=== PATIENT | male | born 1930 | race Caucasian/White ===

== ENCOUNTER 2017-01-20 08:56 | Emergency (ER) | payer MEDICARE ==
[2017-01-20 09:23] LABS: Bilirubin Negative (Negative); Blood, Urine Moderate (Negative); Clarity Clear (Clear); Glucose, Urine (Dipstick) Negative (Negative); Leukocyte Negative (Negative); Nitrite Negative (Negative); Protein, Urine (Dipstick) 30 mg/dL (Neg-Trace); pH, Urine 5.5 (5.0-9.0)
[2017-01-20 09:31] LABS: Bacteria/HPF None Seen HPF (None Seen); Crystals/HPF None Seen HPF (Negative); Hyaline Casts/LPF NONE SEEN LPF (0-3 Hyaline); Other Casts/LPF None Seen LPF (0-3 Hyaline); Oval Fat Bodies/HPF None Seen HPF (None Seen); RBC/HPF 0-3 HPF (0-3); Renal Epithelial None Seen HPF (0-3); Sperm/HPF None Seen HPF (None Seen); Squamous Epithelial None Seen HPF (0-3); Transitional Epithelial NONE SEEN HPF (0-3); Trichomonas/HPF None Seen HPF (None Seen); WBC/HPF None Seen HPF (0-3); Yeast-All Forms None Seen HPF (None Seen)
--- NOTE | 2017-01-20 11:41 | CT ---
CT ABDOMEN AND PELVIS NONCONTRAST: Date: 01/20/17 HISTORY: Hematuria. Left flank pain. COMPARISON: 03/15/15. FINDINGS: Each renal collecting system and ureter are decompressed without stone apparent. Urinary bladder is incompletely distended. The gallbladder is now surgically absent. Lack of contrast limits evaluation for other abnormalities . There is calcification throughout the arterial structures. IMPRESSION: 1. No CT evidence of urinary tract obstruction or calcification. 2. Atherosclerosis. POS: TUNG
== END 2017-01-20 10:35 | disposition home or self-care (01) ==
LOC: BURERS 08:56
DX: M54.16 Radiculopathy, lumbar region (principal); I10 Essential (primary) hypertension
CPT/HCPCS: 74176; 81003; 81015

== ENCOUNTER 2017-02-02 10:30 | Emergency (ER) | payer MEDICARE ==
[2017-02-02] MEDS ORDERED: diphenhydrAMINE 25 MG CAP ONE (10:42)
== END 2017-02-02 11:30 | disposition home or self-care (01) ==
LOC: BURERS 10:30
DX: T63.441A Toxic effect of venom of bees, accidental (unintentional), initial encounter (principal); I10 Essential (primary) hypertension; Z79.899 Other long term (current) drug therapy
CPT/HCPCS: 99282

== ENCOUNTER 2017-02-05 12:09 | Emergency (ER) | payer MEDICARE ==
[2017-02-05 13:09] LABS: INR-International Normal Ratio 1.1; PTT 30.3 SEC (22.9-36.1); Prothrombin Time 14.4 SEC (12.0-14.7)
[2017-02-05 13:19] LABS: ALT (SGPT) 19 U/L (8-55); AST (SGOT) 17 U/L (5-34); Albumin 3.8 g/dL (3.4-4.8); Alkaline Phosphatase 53 U/L (40-150); Anion Gap 19 mmol/L (10-20); BUN (Urea Nitrogen) 31 mg/dL (8.4-25.7); Bilirubin, Total 2.5 mg/dL (0.2-1.2); CK (CPK) 126 U/L (30-200); Calc. Creatinine Clearance 0 mL/min (70-130); Carbon Dioxide 21 mmol/L (23-31); Chloride 103 mmol/L (98-107); Estimated GFR-MDRD 37; Globulin 3.2 g/dL (2.4-3.5); Glucose 149 mg/dL (83-110); Lipase 20 U/L (8-78); Potassium 3.8 mmol/L (3.5-5.1); Sodium 139 mmol/L (136-145)
[2017-02-05 13:20] LABS: Troponin I 0.217 ng/mL (< 0.028)
[2017-02-05 13:36] LABS: #Basophils 0.1 thou/uL (0.0-0.2); #Lymphocytes 1.3 thou/uL (1.20-3.40); #Neutrophils 5.7 thou/uL (1.40-6.50); %Basophils 0.7 % (0.0-1.0); %Eosinophils 0.4 % (0.0-10.0); %Lymphocytes 16.1 % (21.0-51.0); %Monocytes 12.2 % (0.0-10.0); %Neutrophils 70.6 % (42.0-75.0); Hemoglobin 14.6 g/dL (14.0-18.0); MDiff Complete? YES; Macrocytosis SLIGHT = 6-15 cells (100X) (0-5/hpf); Mean Corpuscular HGB CONC 34.3 g/dL (32.0-36.0); Mean Corpuscular Hemoglobin 34.6 pg (27.0-31.0); Mean Platelet Volume 7.7 fL (7.4-10.4); PLT Morphology Comment Appears Decreased; Platelet Count 128 thou/uL (130-400); RBC Distribution Width 10.7 % (11.5-14.5); Red Blood Cell (RBC) Count 4.22 mill/uL (4.70-6.10); White Blood Cell (WBC) Count 8.1 thou/uL (4.8-10.8)
[2017-02-05] MEDS ORDERED: Ondansetron HCl/PF 4 MG/2 ML Vial ONE (14:00)
[2017-02-05] MEDS ORDERED: Nitroglycerin 2% Ointment 1 INCH/1 GM Packet ONE (14:01)
--- NOTE | 2017-02-05 19:47 | RAD ---
PORTABLE CHEST 02/05/17 Comparison is made with the prior study dated 03/15/15. The heart is normal in size and the lungs are clear. No infiltrate or effusion was seen. There is no vascular congestive or edema. The mediastinum appears normal. IMPRESSION: No acute thoracic finding. POS: HOME
== END 2017-02-05 16:30 | disposition short-term general hospital (02) ==
LOC: BURERS 12:09
DX: I21.4 Non-ST elevation (NSTEMI) myocardial infarction (principal); Z85.828 Personal history of other malignant neoplasm of skin; I10 Essential (primary) hypertension
CPT/HCPCS: 71010; 80053; 82553; 83690; 84484; 85025; 85610; 85730; 93005; 96361; 96374; J2405

== ENCOUNTER 2017-02-22 12:40 | Emergency (ER) | payer MEDICARE ==
[2017-02-22] MEDS ORDERED: Magnesium Citrate 300 ML BOT ONE (13:31)
--- NOTE | 2017-02-22 16:09 | RAD ---
ABDOMEN 1 VIEW: DATE: 02/22/17. FINDINGS: The abdominal gas pattern was nonspecific with gas seen in nondilated large and small bowel. There i s no sign of obstruction. Pelvic calcifications are most likely phleboliths. Vascular calcification s are evident elsewhere. Clips are noted in the right upper quadrant from a prior procedure. Modera tely severe degenerative changes are seen in the lumbar spine. IMPRESSION: No acute abdominal finding. POS: HOME
== END 2017-02-22 13:39 | disposition home or self-care (01) ==
LOC: BURERS 12:40
DX: K59.00 Constipation, unspecified (principal); I10 Essential (primary) hypertension
CPT/HCPCS: 74000

== ENCOUNTER 2017-07-22 08:58 | Emergency (ER) | payer MEDICARE ==
[2017-07-22] MEDS ORDERED: Iopamidol 370 76% 100 ML VIAL ONE (09:00)
[2017-07-22 09:50] LABS: #Lymphocytes 1.2 thou/uL (1.20-3.40); #Monocytes 0.6 thou/uL (0.11-0.59); #Neutrophils 4.1 thou/uL (1.40-6.50); %Basophils 0.6 % (0.0-1.0); %Eosinophils 0.3 % (0.0-10.0); %Lymphocytes 19.6 % (21.0-51.0); %Monocytes 10.1 % (0.0-10.0); %Neutrophils 69.4 % (42.0-75.0); Hemoglobin 16.4 g/dL (14.0-18.0); Mean Corpuscular HGB CONC 36.2 g/dL (32.0-36.0); Mean Corpuscular Hemoglobin 33.4 pg (27.0-31.0); Mean Corpuscular Volume 92.4 fl (80.0-94.0); Platelet Count 145 thou/uL (130-400); RBC Distribution Width 11.7 % (11.5-14.5); Red Blood Cell (RBC) Count 4.91 mill/uL (4.70-6.10); White Blood Cell (WBC) Count 5.9 thou/uL (4.8-10.8)
[2017-07-22 09:55] LABS: INR-International Normal Ratio 1.1; PTT 31.3 SEC (22.9-36.1)
[2017-07-22 09:56] LABS: D-Dimer Test 0.48 *mcg/mL (0.27-0.43)
[2017-07-22 10:04] LABS: ALT (SGPT) 15 U/L (8-55); AST (SGOT) 19 U/L (5-34); Albumin 4.4 g/dL (3.4-4.8); Alkaline Phosphatase 68 U/L (40-150); Anion Gap 16 mmol/L (10-20); BUN (Urea Nitrogen) 20 mg/dL (8.4-25.7); Bilirubin, Total 2.4 mg/dL (0.2-1.2); Calc. Creatinine Clearance 0 mL/min (70-130); Calcium 9.2 mg/dL (7.8-10.44); Carbon Dioxide 23 mmol/L (23-31); Chloride 106 mmol/L (98-107); Estimated GFR-MDRD 59; Globulin 3.2 g/dL (2.4-3.5); Glucose 132 mg/dL (83-110); Protein, Total 7.6 g/dL (5.8-8.1); Sodium 141 mmol/L (136-145)
[2017-07-22 10:06] LABS: CKMB 3.9 ng/mL (0-6.6); Troponin I 0.053 ng/mL (< 0.028)
[2017-07-22 10:26] LABS: Bilirubin Negative (Negative); Blood, Urine Moderate (Negative); Clarity Slightly Cloudy (Clear); Glucose, Urine (Dipstick) Negative (Negative); Leukocyte Negative (Negative); Nitrite Negative (Negative); Protein, Urine (Dipstick) 100 mg/dL (Neg-Trace); Specific Gravity, Urine 1.025 (1.005-1.030); pH, Urine 5.5 (5.0-9.0)
[2017-07-22] MEDS ORDERED: Nitroglycerin 2% Ointment 1 INCH/1 GM Packet ONE (10:30)
[2017-07-22 10:34] LABS: RBC/HPF 0-3 HPF (0-3); Squamous Epithelial 0-3 HPF (0-3)
[2017-07-22 10:35] LABS: Bacteria/HPF 1+ HPF (None Seen); Hyaline Casts/LPF 0-3 HYALINE CAST LPF (0-3 Hyaline); WBC/HPF 0-3 HPF (0-3)
--- NOTE | 2017-07-22 20:30 | RAD ---
CHEST TWO VIEWS: 07/22/2017 COMPARISON: 02/05/2017 FINDINGS: Today's exam shows a normal sized heart and clear lungs. Calcification is seen in the aorta. There is no infiltrate, effusion, or vascular congestion. A small subcentimeter rounded structure in the r ight lower chest is probably a nipple shadow, and I believe a see a faint one on the left as well. Calcification of the anterior longitudinal ligament of the spine is noted. IMPRESSION: No acute thoracic findings. POS: HOME
--- NOTE | 2017-07-22 20:44 | CT ---
CT ANGIO CHEST: 07/22/2017 TECHNIQUE: A spiral CT of the chest was performed after a bolus of IV contrast for evaluation of shortness of br eath and an elevated D-dimer. Axial slices were acquired initially. Oblique coronal and sagittal im ages were reconstructed. FINDINGS: There is moderately good opacification of the pulmonary arterial system. No filling defect are seen, to suggest emboli. There is no sign of aortic dissection or aneurysm. No significant mediastinal a denopathy is seen. No masses are detected. There does appear to be some calcification in the perry ry arteries. The lungs are clear. No infiltrate, mass, or effusion is seen. Extensive degenerative changes are seen in the spine. Slices through a portion of the upper abdomen were unremarkable. IMPRESSION: No evidence of pulmonary embolism or other findings to explain shortness of breath. POS: HOME
== END 2017-07-22 12:00 | disposition short-term general hospital (02) ==
LOC: BURERS 08:58
DX: R55 Syncope and collapse (principal); R79.89 Other specified abnormal findings of blood chemistry; I10 Essential (primary) hypertension; Z87.891 Personal history of nicotine dependence; Z79.899 Other long term (current) drug therapy
CPT/HCPCS: 36415; 71046; 71275; 80053; 81003; 81015; 82553; 83605; 83880; 84484; 85025; 85379; 85610; 85730; 87040; 93005; 94760; A4216

== ENCOUNTER 2018-03-27 13:51 | Outpatient (CLI) | payer MEDICARE ==
--- NOTE | 2018-03-27 15:51 | RAD ---
LEFT HAND THREE VIEWS: 03/27/18 There is some mild narrowing of some of the MCP joints, especially the third. There is question of so me cystic changes or erosions in the second and third metacarpal heads. If erosions, then the possibi lity of gout would be raised. If cystic changes, then not. There are degenerative changes in many of the IP joints of the fingers. Most involved are the DIP joint of the index finger and IP joint of the thumb. The carpal bones showed no acute changes. IMPRESSION: Degenerative changes as noted. See comments above regarding MCP joints. POS: HOME
== END 2018-03-27 13:52 | disposition home or self-care (01) ==
LOC: BURRAD 13:51
PROVIDERS: ATTEND Family Medicine
DX: M79.642 Pain in left hand (principal); M19.042 Primary osteoarthritis, left hand

== ENCOUNTER 2018-07-28 10:58 | Emergency (ER) | payer MEDICARE ==
[2018-07-28 11:58] LABS: #Lymphocytes 1.2 thou/uL (1.20-3.40); #Monocytes 0.6 thou/uL (0.11-0.59); #Neutrophils 2.7 thou/uL (1.40-6.50); %Basophils 0.9 % (0.0-1.0); %Eosinophils 0.7 % (0.0-10.0); %Lymphocytes 27.2 % (21.0-51.0); %Monocytes 12.7 % (0.0-10.0); %Neutrophils 58.4 % (42.0-75.0); Mean Corpuscular HGB CONC 33.4 g/dL (32.0-36.0); Mean Corpuscular Hemoglobin 32.5 pg (27.0-31.0); Mean Corpuscular Volume 97.3 fL (78.0-98.0); Mean Platelet Volume 7.7 fL (7.4-10.4); Platelet Count 128 thou/uL (130-400); RBC Distribution Width 11.2 % (11.5-14.5); Red Blood Cell (RBC) Count 4.62 mill/uL (4.70-6.10); White Blood Cell (WBC) Count 4.5 thou/uL (4.8-10.8)
[2018-07-28 12:14] LABS: ALT (SGPT) 16 U/L (8-55); AST (SGOT) 21 U/L (5-34); Albumin 4.3 g/dL (3.4-4.8); Alkaline Phosphatase 69 U/L (40-150); Anion Gap 13 mmol/L (10-20); BUN (Urea Nitrogen) 19 mg/dL (8.4-25.7); Bilirubin, Total 2.6 mg/dL (0.2-1.2); Calc. Creatinine Clearance 0 mL/min (70-130); Carbon Dioxide 22 mmol/L (23-31); Chloride 109 mmol/L (98-107); Estimated GFR-MDRD 66; Globulin 3.1 g/dL (2.4-3.5); Glucose 110 mg/dL (83-110); Potassium 3.6 mmol/L (3.5-5.1); Protein, Total 7.4 g/dL (5.8-8.1); Sodium 140 mmol/L (136-145)
--- NOTE | 2018-07-28 19:07 | CT ---
CT BRAIN WITHOUT CONTRAST: 07/28/2018 FINDINGS: A noncontrast CT shows no intracranial bleeding or extraaxial hematoma. Diffuse atrophy is present w ith mild compensatory dilatation of the ventricles. 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 Alternatively, it could be a prominent Virchow space, but I favor a prior lacunar infarct. There is no sign of acute stroke or edema. A 4 cm CSF density structure is seen in the midline of the posterior fossa and slightly to the left. It is obviously longstanding and is most likely an arachnoid cyst. The bony structures all appear intact. There are no air-fluid levels in the sphenoid sinus. The mas toid air cells are clear, except for opacification of a few at the right mastoid tip. IMPRESSION: 1. No acute intracranial findings. 2. Atrophy and ischemic changes, as noted. 3. A 4 cm arachnoid cyst of the posterior fossa, obviously longstanding. POS: HOME
--- NOTE | 2018-07-28 19:08 | RAD ---
RIGHT HAND THREE VIEWS: 07/28/2018 FINDINGS: There is a flexion deformity at the DIP joint of the index finger that appears to be longstanding. T here are severe degenerative changes there and perhaps old trauma. Regarding the ring finger, I did not see any acute fracture, though the PIP joint is partially obscured by overlapping bones on the la teral view. The remainder of the hand and wrist appear intact. A small shasha of bone at the tip of the ulnar styloid is more likely old than new. IMPRESSION: Chronic changes but no acute findings. POS: HOME
== END 2018-07-28 12:41 | disposition home or self-care (01) ==
LOC: BURERS 10:58
DX: S00.33XA Contusion of nose, initial encounter (principal); S00.83XA Contusion of other part of head, initial encounter; G93.0 Cerebral cysts; G62.9 Polyneuropathy, unspecified; I10 Essential (primary) hypertension; Z87.891 Personal history of nicotine dependence; Z79.899 Other long term (current) drug therapy; W18.30XA Fall on same level, unspecified, initial encounter
CPT/HCPCS: 36415; 70450; 80053; 84443; 85025